=== PATIENT | female | born 1975 | race Caucasian/White ===

== ENCOUNTER 2018-11-09 15:22 | Outpatient (CLI) | payer BC | END 2018-11-09 15:23 | disposition home or self-care (01) | LOC: LAB 15:22 | PROVIDERS: ATTEND Specialist | DX: D71 Functional disorders of polymorphonuclear neutrophils (principal) | CPT/HCPCS: 36415; 82164 ==

== ENCOUNTER 2019-07-04 15:57 | Emergency (ER) | payer BC, OTHER ==
[2019-07-04 16:22] VITALS: BP 145/93
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
[2019-07-04] MEDS ORDERED: IBUPROFEN PO ONE (17:38)
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
== END 2019-07-04 18:25 | disposition home or self-care (01) ==
LOC: ED 15:57
DX: S13.4XXA Sprain of ligaments of cervical spine, initial encounter (principal); S46.912A Strain of unspecified muscle, fascia and tendon at shoulder and upper arm level, left arm, initial encounter; J45.909 Unspecified asthma, uncomplicated; Z79.899 Other long term (current) drug therapy; V89.2XXA Person injured in unspecified motor-vehicle accident, traffic, initial encounter; Y93.89 Activity, other specified; Y92.488 Other paved roadways as the place of occurrence of the external cause; Y99.8 Other external cause status
CPT/HCPCS: 72040; 99283